=== PATIENT | female | born 1955 | race Caucasian/White ===

== ENCOUNTER → 2020-01-24 | Day surgery (SDC) | payer BC, MEDICARE ==
[~2020-01-24] VITALS: Ht 175.3 cm; Wt 58.5 kg
--- NOTE | 2020-01-24 15:35 | NUR ---
Midline was place, per Dr. Naveen Shipman in [facility]. BioFlo Midline 4f was used. REF [id number], Lot [id number]. Patient tolerated well.
== END | disposition home or self-care (01) ==
LOC: SSTAY O 12:53
PROVIDERS: ATTEND Family Medicine
DX: T86.812 Lung transplant infection (principal); Y83.8 Other surgical procedures as the cause of abnormal reaction of the patient, or of later complication, without mention of misadventure at the time of the procedure; Y92.89 Other specified places as the place of occurrence of the external cause
CPT/HCPCS: 36410; 76937

== ENCOUNTER 2023-03-24 12:41 | Emergency (ER) | payer MEDICARE, BC ==
[~2023-03-24] VITALS: Ht 174 cm; Wt 70.9 kg
[2023-03-24 12:48] VITALS: TEMP 98.2
[2023-03-24 14:17] LABS: BASOPHILS % (AUTO) 0.4 % (0-1); EOSINOPHILS # (AUTO) 0.1 X10'3 (0-0.9); EOSINOPHILS % (AUTO) 0.7 % (0-6); HEMATOCRIT 38.9 % (35.0-45.0); HEMOGLOBIN 12.8 g/dl (12.0-16.0); LYMPHOCYTES # (AUTO) 0.8 X10'3 (1.1-4.8); LYMPHOCYTES % (AUTO) 9.1 % (21-51); MEAN CORPUSCULAR HGB CONC 32.9 g/dL (33.0-36.5); MEAN CORPUSCULAR VOLUME 97.2 FL (78-98); MEAN PLATELET VOLUME 9.3 FL (7.4-10.4); MONOCYTES # (AUTO) 0.5 X10'3 (0-0.9); MONOCYTES % (AUTO) 5.1 % (2-12); NEUTROPHILS # (AUTO) 7.7 X10'3 (1.8-7.7); NEUTROPHILS % (AUTO) 84.7 % (42-75); PLATELET COUNT 148 X10'3 (140-440); WHITE BLOOD COUNT 9.1 X10'3 (4.5-11.0)
[2023-03-24 14:30] LABS: ALANINE AMINOTRANSFERASE 21 U/L (12-78); ALBUMIN 4.2 G/DL (3.4-5.0); ALBUMIN/GLOBULIN RATIO 1.1 (1.1-1.5); ALKALINE PHOSPHATASE 48 IU/L (46-116); ANION GAP 5 (8-16); ASPARTATE AMINO TRANSFERASE 22 U/L (10-37); BILIRUBIN,TOTAL 0.8 MG/DL (0.1-1.0); BLOOD UREA NITROGEN 20 MG/DL (7-18); BUN/CREATININE RATIO 14.3 (10.0-20.0); CALCIUM 9.3 MG/DL (8.5-10.1); CHLORIDE 100 MMOL/L (99-107); GLUCOSE 111 MG/DL (70-104); POTASSIUM 3.9 MMOL/L (3.5-5.1); SODIUM 138 MMOL/L (135-145); TOTAL CARBON DIOXIDE 33.2 MMOL/L (24-32); TOTAL PROTEIN 7.9 G/DL (6.4-8.2); eCRCL 40 ML/MIN; eGFR 38 ML/MIN
[2023-03-24 14:41] LABS: PRO BRAIN NATRIURETIC PEPTIDE 827 PG/ML (0-125)
[2023-03-24] MEDS ORDERED: DEXTROSE 5% IV SCH (15:40)
[2023-03-24] MEDS ORDERED: METHYLPREDNISOLONE SOD SUC IV SCH (15:40)
[2023-03-24] MEDS ORDERED: WATER IV SCH (15:40)
[2023-03-24] MEDS ORDERED: METHYLPREDNISOLONE SOD SUC IV ONE (15:43)
[2023-03-24] MEDS ORDERED: WATER IV ONE ×2 (15:43→15:46)
[2023-03-24] MEDS ORDERED: DEXTROSE 5% IV ONE ×2 (15:43→15:46)
[2023-03-24] MEDS ORDERED: METHYLPREDNISOLONE SOD SUCC IV ONE (15:46)
[2023-03-24] MEDS ORDERED: methylPREDNISolone sod succ 500 MG in dextrose 5%-water 50ml 50 ML IV ONE (15:48)
[2023-03-24 17:04] VITALS: BP 115/75; PULSE 75; RESP 16; O2SAT 98
== END 2023-03-24 17:06 | disposition home or self-care (01) ==
LOC: ER 12:41
DX: J84.10 Pulmonary fibrosis, unspecified (principal); Z94.2 Lung transplant status; Z88.1 Allergy status to other antibiotic agents
CPT/HCPCS: 36415; 71045; 80053; 83880; 84484; 85025; 93005; 96365; 99285; J2930; J7060

== ENCOUNTER 2023-03-25 12:00 | Emergency (ER) | payer MEDICARE, BC ==
[~2023-03-25] VITALS: Ht 175.3 cm; Wt 69.5 kg
[2023-03-25] MEDS ORDERED: methylPREDNISolone sod succ 125mg/2ml vial IV ONE (12:05)
[2023-03-25 12:08] VITALS: BP 141/79; PULSE 64; RESP 16; TEMP 98; O2SAT 91
[2023-03-25] MEDS ORDERED: methylPREDNISolone sod succ 500 MG in dextrose 5%-water 50ml 50 ML IV ONE (12:20)
== END 2023-03-25 13:25 | disposition home or self-care (01) ==
LOC: ER 12:01
DX: Z94.2 Lung transplant status (principal)
CPT/HCPCS: 96365; 99284; J2930; J7060

== ENCOUNTER 2023-03-26 12:09 | Emergency (ER) | payer MEDICARE, BC ==
[~2023-03-26] VITALS: Ht 172.7 cm; Wt 70.5 kg
[2023-03-26 12:41] VITALS: TEMP 98.1
[2023-03-26] MEDS ORDERED: methylPREDNISolone sod succ 500 MG in dextrose 5%-water 50ml 50 ML IV ONE (13:45)
[2023-03-26 15:07] VITALS: BP 122/59; PULSE 49; RESP 18; O2SAT 100
== END 2023-03-26 15:25 | disposition home or self-care (01) ==
LOC: ER 12:10
DX: R06.02 Shortness of breath (principal); Z88.1 Allergy status to other antibiotic agents; Z79.899 Other long term (current) drug therapy
CPT/HCPCS: 96365; 99284; J2930; J7060

== ENCOUNTER 2023-05-25 14:27 | Outpatient (CLI) | payer MEDICARE, BC | END 2023-05-25 23:59 | disposition home or self-care (01) | LOC: RAD 14:27 | PROVIDERS: ATTEND Family Medicine | DX: J93.9 Pneumothorax, unspecified (principal); R06.02 Shortness of breath; Z94.2 Lung transplant status | CPT/HCPCS: 71250 ==

== ENCOUNTER 2023-11-02 11:32 | Outpatient (CLI) | payer MEDICARE, BC | END 2023-11-02 23:59 | disposition home or self-care (01) | LOC: LAB 11:32 | PROVIDERS: ATTEND Student in an Organized Health Care Education/Training Program | DX: J84.9 Interstitial pulmonary disease, unspecified (principal); Z94.2 Lung transplant status | CPT/HCPCS: 36415; 82800 ==

== ENCOUNTER 2024-04-01 09:20 | Outpatient (CLI) | payer MEDICARE, BC | END 2024-04-01 23:59 | disposition home or self-care (01) | LOC: RAD 09:20 | PROVIDERS: ATTEND Family Medicine | DX: J32.2 Chronic ethmoidal sinusitis (principal) | CPT/HCPCS: 70486; A4615; J7120 ==

== ENCOUNTER 2024-06-05 10:28 | Outpatient (CLI) | payer MEDICARE, BC | END 2024-06-05 23:59 | disposition home or self-care (01) | LOC: RAD 10:28 | PROVIDERS: ATTEND Student in an Organized Health Care Education/Training Program | DX: K80.20 Calculus of gallbladder without cholecystitis without obstruction (principal); D61.818 Other pancytopenia | CPT/HCPCS: 76700 ==